=== PATIENT | female | born 1955 | race Caucasian/White ===

== ENCOUNTER 2017-06-24 11:09 | Inpatient (IN) ==
[2017-06-24] MEDS ORDERED: Famotidine 20 MG/2 ML VIAL IVP ONE (11:40)
[2017-06-24] MEDS ORDERED: Pregabalin 75 MG CAPSULE PO ONE (11:40)
[2017-06-24] MEDS ORDERED: Clindamycin 900 MG/50 ML 900 MG/50 ML IV.SOLN IVPB ONE (12:05)
[2017-06-24] MEDS ORDERED: Ringers Solution, Lactated 1,000 ML IVC SCH ×2 (12:15→16:16)
--- NOTE | 2017-06-24 12:19 | Anesthesia Evaluation PreOp ---
Date of Encounter: 06/24/17 Time of Encounter: 12:15 - Past History Planned Operation: Rt Total Shoulder Replacement Cardiac History: Denies any Significant Hx Pulmonary History: Denies Any Significant HX TAMPER OPERATOR History: Denies Any Significant HX Other Medical History: Thyroid, GERD, Other (Arthritis, Obese) Anesthesia History: No Prior Anesthetic Complications : No Test: Negative Alcohol Use: none Drug use: none Medications and Allergies Atenolol [Tenormin] 25 mg PO HS 06/24/17 [History] Citalopram Hydrobromide [Celexa] 40 mg PO DAILY 06/24/17 [History] Cyclosporine [Restasis] 1 drop BOTH EYES BID 06/24/17 [History] Docusate [Colace] 100 mg PO DAILY PRN 06/24/17 [History] Ergocalciferol (VITAMIN D2) [Vitamin D2] 50,000 unit PO TH 06/24/17 [History] Flaxseed Oil [[place]-3 Flaxseed Oil] 1,000 mg PO DAILY 06/24/17 [History] Flaxseed/Evening Prim/Bilberry [Retaine Flax Softgel] 1 cap PO DAILY 06/24/17 [ History] Furosemide [Lasix] 40 mg PO DAILY 06/24/17 [History] Gabapentin [Neurontin] 600 mg PO TID 06/24/17 [History] Levothyroxine [Synthroid] 88 mcg PO 0630 06/24/17 [History] Meloxicam [Mobic] 15 mg PO DAILY 06/24/17 [History] Morphine Sulfate [Noemi] 30 mg PO TID 06/24/17 [History] Nitroglycerin [Nitrostat] 0.4 mg SL AD PRN 06/24/17 [History] Nortriptyline [Pamelor] 25 mg PO BID 06/24/17 [History] Potassium Bicarbonate/Cit AC [Effer-K 10 Meq Tablet Eff] 10 meq PO BID 06/24/17 [History] Promethazine [Phenergan] 25 mg PO Q8HR PRN 06/24/17 [History] Rabeprazole Sodium [Aciphex] 20 mg PO BID 06/24/17 [History] Spironolactone [Aldactone] 25 mg PO DAILY 06/24/17 [History] 3 Allergy/AdvReac Type Severity Reaction Status Date / Time Amoxicillin Allergy See Verified 06/24/17 12:06 Comments aspirin Allergy See Verified 06/24/17 12:06 Comments codeine Allergy See Verified 06/24/17 12:06 Comments Cyclobenzaprine Allergy See Verified 06/24/17 12:06 [From Flexeril] Comments NSAIDS (Non-Steroidal Allergy See Verified 06/24/17 12:06 Anti-Inflamma Comments Penicillins [PCN] Allergy See Verified 06/24/17 12:06 Comments pentazocine [From Talwin] Allergy Difficulty Verified 06/24/17 12:06 Breathing acetaminophen [From Tylenol] AdvReac See Verified 06/24/17 12:06 Comments eggs AdvReac See Uncoded 06/24/17 12:06 Comments - Meds/Allergy Pre-op Review Medications Reviewed: Yes Allergies Reviewed: Yes Beta Blockers on Current Med List: Yes (Atenolol midnight) Anesthesia Results - Labs HGB 14.0 HCT 41.6 PLt 219 Na 142 Creat 1.46 - Imaging EKG: report reviewed (SR) Anesthesia Exam O2 Sat Height 19.51 m Height 19.51 m Weight 100.698 kg Weight 100.698 kg O2 Sat by Pulse Oximetry 96 Vital Signs Temp Pulse Resp BP Pulse Ox 97.6 F 79 18 136/75 96 06/24/17 11:31 06/24/17 11:31 06/24/17 11:31 06/24/17 11:31 06/24/17 11:31 Height: 5'4 Weight: 222 lbs NPO (# of Hours): MN Pain Scale: 0 - HEENT Pupil (Motor): Pupils equal, EOMI Mallampati: III Oral Opening: Less than or equal to 3 - TAMPER OPERATOR LOC: Oriented TAMPER OPERATOR Motor: Normal RUE, Normal LUE, Normal RLE, Normal LLE, Normal Face TAMPER OPERATOR Sensory: Normal: RUE, LUE, RLE, LLE, Face - Cardiac Rhythm: Regular Murmur: None JVD: No Carotid Bruit: No - Pulmonary Breath Sounds: bilateral Clear Respiratory Effort: Symmetrical Anesthesia Assess/Plan ASA Score: 2 Modified [place] Scale for Level of Consciousness: Cooperative, oriented, and tranquil Anesthetic Plan: General, Regional Monitoring Plan: Standard Monitors Recovery Plan: PACU (Discussed GA and RA, agrees to proceed)
--- NOTE | 2017-06-24 12:29 | History & Physical Report ---
Date of Encounter: 06/24/17 Time of Encounter: 12:28 24 Hour HP Update - Instructions Instructions: If the History and Physical is less than 30 days old and was completed prior to A.M. admission and or procedure and has NOT been updated on calendar day of procedure please complete this update prior to performing procedure. - Update Patient reports changes in Medical Condition: No Changes in examination, assessment, or condition: No Changes in Medication: No Preop tests/diagnostics Reviewed: Yes Surgery Remains Indicated: Yes Consent for Planned Operative Procedure(s) Verified: Yes - Pre-Operative Checklist Preoperative Checklist Indicated: No Prophylactic Antibiotic Ordered: Yes Is VTE Prophylaxis Indicated?: Yes
--- NOTE | 2017-06-24 12:47 | Discharge Summary ---
Orders not resulted at time of discharge: Pending orders 06/24/17 US anesthesia pain block [US] Routine 06/24/17 08:33 XR shoulder complete RT [XR] Routine Hemoglobin and Hematocrit [HEME] Routine Date of Encounter: 06/30/17 Time of Encounter: 13:45 - Discharge Diagnosis (1) Rotator cuff tear arthropathy of right shoulder Priority: Primary Status: Chronic (2) Status post reverse total replacement of right shoulder Priority: Primary Status: Acute (3) Hypothyroidism Priority: Secondary Status: Chronic Qualifiers: Hypothyroidism type: unspecified Qualified Code(s): E03.9 - Hypothyroidism , unspecified - Hospital Course Hospital course: Ms. Flores is a 62 year old female Status post total shoulder replacement The patient had an uneventful postoperative course. They received antibiotics and physical therapy and were discharged in stable condition. There will follow -up in the office in 2 weeks. - Time Spent with Patient Total time spent providing and/or coordinating discharge services: - Discharge Medications Home Medications: Atenolol [Tenormin] 25 mg PO HS 06/24/17 [History] Citalopram Hydrobromide [Celexa] 40 mg PO DAILY 06/24/17 [History] Cyclosporine [Restasis] 1 drop BOTH EYES BID 06/24/17 [History] Docusate [Colace] 100 mg PO DAILY PRN 06/24/17 [History] Ergocalciferol (VITAMIN D2) [Vitamin D2] 50,000 unit PO TH 06/24/17 [History] Flaxseed Oil [Premium-3 Flaxseed Oil] 1,000 mg PO DAILY 06/24/17 [History] Flaxseed/Evening Prim/Bilberry [Retaine Flax Softgel] 1 cap PO DAILY 06/24/17 [ History] Furosemide [Lasix] 40 mg PO BID 06/24/17 [History] Gabapentin [Neurontin] 600 mg PO TID 06/24/17 [History] Levothyroxine [Synthroid] 88 mcg PO 0630 06/24/17 [History] Lidocaine Patch [Lidoderm 5% patch] 1 patch TD DAILY 06/24/17 [History] Meloxicam [Mobic] 15 mg PO DAILY 06/24/17 [History] Morphine Sulfate [Noemi] 30 mg PO TID 06/24/17 [History] Nitroglycerin [Nitrostat] 0.4 mg SL AD PRN 06/24/17 [History] Nortriptyline [Pamelor] 25 mg PO BID 06/24/17 [History] Potassium Bicarbonate/Cit AC [Effer-K 10 Meq Tablet Eff] 10 meq PO BID 06/24/17 [History] Promethazine [Phenergan] 25 mg PO Q8HR PRN 06/24/17 [History] Rabeprazole Sodium [Aciphex] 20 mg PO BID 06/24/17 [History] Spironolactone [Aldactone] 25 mg PO DAILY 06/24/17 [History] Allergies/Adverse Reactions: 3 Allergy/AdvReac Type Severity Reaction Status Date / Time Amoxicillin Allergy See Verified 06/24/17 12:06 Comments aspirin Allergy See Verified 06/24/17 12:06 Comments codeine Allergy See Verified 06/24/17 12:06 Comments Cyclobenzaprine Allergy See Verified 06/24/17 12:06 [From Flexeril] Comments NSAIDS (Non-Steroidal Allergy See Verified 06/24/17 12:06 Anti-Inflamma Comments Penicillins [PCN] Allergy See Verified 06/24/17 12:06 Comments pentazocine [From Talwin] Allergy Difficulty Verified 06/24/17 12:06 Breathing acetaminophen [From Tylenol] AdvReac See Verified 06/24/17 12:06 Comments eggs AdvReac See Uncoded 06/24/17 12:06 Comments Primary care physician: Amanda Beltre - Patient Status Disposition: Home Health Service Condition: Good Functional capacity at discharge: independent ambulation Overall status at discharge: patient is progressing back to baseline - Discharge Instructions Follow Up With: Jimmie Winters MD [Partnered Physician] - 07/19/17 3:45 pm ([facility] ) Hal Musa MD [Partnered Physician] - 07/06/17 9:20 am ([facility] ) Additional Instructions: Discharge Instructions: Total Shoulder Please call [facility] ([phone]), your Primary Care Physician, or report to the Emergency Room if you have any of the following symptoms: Nausea, vomiting, fever greater that 101.5, swelling, chest pain, shortness of breath, increased pain/redness/drainage/odor for your incision site, numbness/ tingling, or any other concerning symptoms. ACTIVITY: Always keep your arm in the sling. Do not raise your arm away from your body. Do not use your arm to help with getting in or out of bed. No weight bearing permitted. Only perform those exercises given to you by your therapist. MEDICATIONS: Upon discharge resume your home medications. Take all the medications as prescribed. Take a stool softener if taking narcotic pain medications. Stool softeners are only effective if you drink enough fluids. Drink 6-8 glass of water or fluids a day, unless this is not allowed for another health problem. Despite using stool softeners, if you haven't had a bowel movement in 3 days, please switch to a gentle laxative. Gentle laxatives are sold over the counter. You should have a bowel movement within 24 hours, if not call the office. You will be discharged from the hospital with a prescription for pain medication. You are encouraged to decrease the use of narcotic pain medication as tolerated. Should you require a refill, please call the office. [facility] prescribes narcotic pain medication for only 4-6 weeks after surgery. If you require pain medication beyond this time period, you may be referred to your Primary Care Physician or to the Pain Clinic for further evaluation. Plan ahead for refills on pain medication as many narcotics either need to be picked up at the office or mailed. It is best to call 48-72 hours in advance of needing a prescription refill so you don't run out of medication. To help control the post-operative pain, you may take NSAIDs (Aleve,Advil, Motrin, Ibuprofen, Naprosyn) or Tylenol as prescribed on the bottle in addition to the pain medication. WOUND CARE: Leave the dressing on for 7-10 days. You may change the dressing if it becomes saturated greater than 50%. Do not get the dressing wet at anytime. Wash your hands with antibacterial soap, rinse and dry prior to any wound care. If you have kelly the visiting nurse or rehab facility can remove the stapes 10-14 days after surgery and place steri-strips across the wound. Leave the steri-strips in place until they fall off on their own. You may let water from the shower run on top of the steri-strips. If you do not have a visiting nurse or rehab facility, you will need to return to the office at 10-14 days for the kelly to be removed. If you have itching or redness around the dressing call the office. FOLLOW-UP: Please follow up with your surgeon in the orthopedic clinic, as scheduled
[2017-06-24] MEDS ORDERED: Dexamethasone 4 MG/ML VIAL ONE (13:00)
[2017-06-24] MEDS ORDERED: *HR* Midazolam HCl 2 MG/2 ML VIAL ONE (13:00)
[2017-06-24] MEDS ORDERED: *HR* Succinylcholine 200 MG/10 ML VIAL IVP ONE (13:00)
[2017-06-24] MEDS ORDERED: Lidocaine -MPF 2% 2 ML VIAL ONE (13:00)
[2017-06-24] MEDS ORDERED: Ondansetron 4 MG/2 ML VIAL ONE (13:00)
[2017-06-24] MEDS ORDERED: Lidocaine -MPF 4% 5 ML AMPUL ONE (13:00)
[2017-06-24] MEDS ORDERED: *HR* FentaNYL (PF) 100 MCG/2 ML VIAL ONE (13:00)
[2017-06-24] MEDS ORDERED: *HR* Propofol 200 MG/20 ML VIAL IVP ONE (13:01)
[2017-06-24] MEDS ORDERED: ROPIVACAINE HCL/PF 0.5% 30 ML VIAL ONE (13:04)
[2017-06-24] MEDS ORDERED: Tetracaine/PF 20 MG/2 ML AMPUL ONE (13:04)
--- NOTE | 2017-06-24 13:19 | Anesthesia Procedures ---
Date of Encounter: 06/24/17 Time of Encounter: 12:15 Procedures: Anesthesia - Nerve Block Procedure Date: 06/24/17 Time: 13:20 Pre-op Diagnosis: Rt Shoulder Arthropathy Surgical Procedure: Rt Total Shoulder Checklist: Correct Patient Identifier Correct side: Right Blood Thinner: No Monitor Applied: EKG, BP, Pulse Oximetry Supplemental Oxygen via Nasal Cannula (L/min): 2 Sedation: Versed (mg): 1 Sedation: Fentanyl (mcg): 50 Indication: Post Op Analgesia Pre-op Neuro Deficits: No Block Type: Supraclavicular Catheter placed: No Depth at skin (cm): 2 Sterile Technique: Yes Ultrasound used: Yes Anatomy identified: Yes Visual spread of Local: Yes Neuro Stimulation: No Blood on Needle Aspiration: No Smooth Injection of Local: Yes Pain with Injection of Local: No Prep: Chlorhexadine Needle: 22 x 50 mm Stimuplex Local: Tetracaine (20 mg), Ropivacaine (0.5%) Volume (cc): 30cc Number of Attempts: 1 Complications: None/effective block Vitals: O2 Sat Height 1.63 m Height 1.63 m Height 19.51 m Weight 100.698 kg Weight 100.698 kg Weight 100.698 kg O2 Sat by Pulse Oximetry 95 O2 Sat by Pulse Oximetry 96 Vital Signs Temp Pulse Resp BP Pulse Ox 97.6 F 79 18 136/75 96 06/24/17 11:31 06/24/17 11:31 06/24/17 11:31 06/24/17 11:31 06/24/17 11:31
[2017-06-24] MEDS ORDERED: *HR* HYDROmorphone (PF) 1 MG/ML SYRINGE IVP PRN (13:20)
[2017-06-24] MEDS ORDERED: *HR* Promethazine 25 MG/ML VIAL IVP PRN (13:20)
[2017-06-24] MEDS ORDERED: *HR* PHENYLEPHRINE 1,000 MCG/10 ML SYRINGE IVP ONE (14:20)
--- NOTE | 2017-06-24 15:23 | Orthopedic Operative Note ---
Date of procedure: 06/24/17 Pre-op diagnosis: right shoulder cuff tear arthropathy Post-op diagnosis: same Procedure: Procedure: Total Shoulder Replacment Reverse, Right Estimated blood loss: 100 cc Hardware: Metal and polyethylene replacement: Arthrex medium glenoid baseplate , 2 4.5 screws. 1 6.5 screw, 39+4 glenosphere, 6 humeral stem, poly insert 3 Exam Under anesthesia: Full motion no instability Procedural Notes: Irreparable tear supraspinatus tendon Operative procedure: The patient was brought to the operating room and placed on the operating room table. After general anesthesia was administered the operative shoulder was examined. Findings were noted. The patient was placed in the modified beachchair position. All pressure points were padded appropriately. And the head was stabilized in the neutral position. The operative extremity was prepped and draped in the sterile surgical fashion. The patient received IV antibiotics prior to skin incision. A standard deltopectoral approach was made to the operative shoulder. Incision was made to the skin and subcutaneous tissue,hemo stasis was obtained with Bovie cautery. Using careful blunt dissection the cephalic vein was identified and mobilized medially. The deltopectoral interval was developed and the clavipectoral fascia was incised. The subscap was released off the lesser tuberosity and tagged with #2 FiberWire suture subscap was irreparable. The humerus was dislocated patient noted to have irreparable tear supraspinatus tendon, and the humeral cut was made along the anatomic neck. Anterior and posterior Bankart retractors were placed to expose the glenoid. The glenoid guide was seated and the centering hole was made. It was reamed with the appropriate reamer. The small baseplate was seated and secured with (2) 4.5 screws and one 6.5 screw. The baseplate was irrigated and dried and the 39+4 Glenosphere was seated and secured with the Shaikh taper. The Shaikh taper was tested and found to be secure the humerus was redislocated and prepared with the diaphyseal reamers, followed by a broaching process up to the appropriate size 6 in the patient's anatomic version. The metaphyseal reamer was then utilized. Trial reduction found the shoulder to be relocatable. Trial components were removed and The appropriate 6 stem was impacted in place in the patient's anatomic version. Trial reduction found the shoulder to be relocatable and stable with the appropriate 3. Trial component was removed and the real implant was seated and secured the shoulder was reduced. The shoulder had excellent motion and excellent stability and no evidence of dislocation. The deep tissue was irrigated with pulse irrigation. The deltopectoral interval was closed with a running #1 PDS suture, subcutaneous tissue was irrigated and closed with 0 PDS suture, the skin was closed with Dermabond. The patient was placed in a sterile dressing, abduction brace and extubated. The patient was then transferred to the recovery room in stable condition. Anesthesia: PARVEZ Surgeon: Jimmie Winters Was there an apartment community assistant manager present: No Estimated blood loss (cc): 100 Condition: stable Disposition: PACU
--- NOTE | 2017-06-24 15:49 | Physician Discharge Referral ---
Home Health/Hosp Referral Info Transfer to: Home Health Attending Provider: Dr Winters - Diagnosis (1) Rotator cuff tear arthropathy of right shoulder Priority: Primary Status: Chronic (2) Status post reverse total replacement of right shoulder Priority: Primary Status: Acute (3) Hypothyroidism Priority: Secondary Status: Chronic - Respiratory Orders Smoking Cessation: Smoking cessation has been advised. For more information, call the [place] Tobacco Quit Line at 4-199-EKQT-NOW. - Dressing/Wound Care Site: right shoulder Type of Dressing/Treatments w/Frequency: Opsite placed. Keep dressing intact until first follow up appointment. If > 50% saturated, notify office, remove dressing and place appropriate dressing back in place. Leave Zipline intact. Opsite dressing is water resistant, not water- proof. OK to shower, but do not get dressing wet. - Diet/Nutrition Diet/Nutrition Orders: Regular - Activity Activity Orders: Up ad jered, Ambulate, Chair Activity: List: PT/OT. NWB to affected upper extremity. Follow Shoulder Precautions x 6 weeks. Stay in brace during activity and at night. Remove brace during exercises. ICE and elevate extremity frequently throughout the day. - Services Needed Following services are medically necessary services: Nursing, Home Health Aide, Physical Therapy, Occupational Therapy - Transfer Medications Home Medications: Atenolol [Tenormin] 25 mg PO HS 06/24/17 [History] Citalopram Hydrobromide [Celexa] 40 mg PO DAILY 06/24/17 [History] Cyclosporine [Restasis] 1 drop BOTH EYES BID 06/24/17 [History] Docusate [Colace] 100 mg PO DAILY PRN 06/24/17 [History] Ergocalciferol (VITAMIN D2) [Vitamin D2] 50,000 unit PO TH 06/24/17 [History] Flaxseed Oil [[place]-3 Flaxseed Oil] 1,000 mg PO DAILY 06/24/17 [History] Flaxseed/Evening Prim/Bilberry [Retaine Flax Softgel] 1 cap PO DAILY 06/24/17 [ History] Furosemide [Lasix] 40 mg PO BID 06/24/17 [History] Gabapentin [Neurontin] 600 mg PO TID 06/24/17 [History] Levothyroxine [Synthroid] 88 mcg PO 0630 06/24/17 [History] Lidocaine Patch [Lidoderm 5% patch] 1 patch TD DAILY 06/24/17 [History] Meloxicam [Mobic] 15 mg PO DAILY 06/24/17 [History] Morphine Sulfate [Noemi] 30 mg PO TID 06/24/17 [History] Nitroglycerin [Nitrostat] 0.4 mg SL AD PRN 06/24/17 [History] Nortriptyline [Pamelor] 25 mg PO BID 06/24/17 [History] Potassium Bicarbonate/Cit AC [Effer-K 10 Meq Tablet Eff] 10 meq PO BID 06/24/17 [History] Promethazine [Phenergan] 25 mg PO Q8HR PRN 06/24/17 [History] Rabeprazole Sodium [Aciphex] 20 mg PO BID 06/24/17 [History] Spironolactone [Aldactone] 25 mg PO DAILY 06/24/17 [History] Allergies/Adverse Reactions: 3 Allergy/AdvReac Type Severity Reaction Status Date / Time Amoxicillin Allergy See Verified 06/24/17 12:06 Comments aspirin Allergy See Verified 06/24/17 12:06 Comments codeine Allergy See Verified 06/24/17 12:06 Comments Cyclobenzaprine Allergy See Verified 06/24/17 12:06 [From Flexeril] Comments NSAIDS (Non-Steroidal Allergy See Verified 06/24/17 12:06 Anti-Inflamma Comments Penicillins [PCN] Allergy See Verified 06/24/17 12:06 Comments pentazocine [From Talwin] Allergy Difficulty Verified 06/24/17 12:06 Breathing acetaminophen [From Tylenol] AdvReac See Verified 06/24/17 12:06 Comments eggs AdvReac See Uncoded 06/24/17 12:06 Comments Certification: Further, I certify that my clinical findings support that this patient is homebound (i.e. absences from home require considerable and taxing effort and are for medical reasons or zoroastrianism services or infrequently or short duration when for other reasons) because: Homebound Reason: Post-surgery restriction and or conditions limit ability to leave home Attestation: My signature below is to certify that this patient is under my care and that I, or nurse practitioner, or a physician anesthesiologist assistant certified working with me, has a face-to- face encounter with this patient.
--- NOTE | 2017-06-24 15:51 | Physician Discharge Referral ---
ExtendedCare Referral Info Transfer To: [facility] Provider in Charge: Dr Winters - Diagnosis (1) Rotator cuff tear arthropathy of right shoulder Priority: Primary Status: Chronic (2) Status post reverse total replacement of right shoulder Priority: Primary Status: Acute (3) Hypothyroidism Priority: Secondary Status: Chronic Expected Duration of Placement: less than 30 days Prognosis: Good Aware of Diagnosis: Patient Aware of Prognosis: Patient - Transfer Medications Home Medications: Atenolol [Tenormin] 25 mg PO HS 06/24/17 [History] Citalopram Hydrobromide [Celexa] 40 mg PO DAILY 06/24/17 [History] Cyclosporine [Restasis] 1 drop BOTH EYES BID 06/24/17 [History] Docusate [Colace] 100 mg PO DAILY PRN 06/24/17 [History] Ergocalciferol (VITAMIN D2) [Vitamin D2] 50,000 unit PO TH 06/24/17 [History] Flaxseed Oil [[place]-3 Flaxseed Oil] 1,000 mg PO DAILY 06/24/17 [History] Flaxseed/Evening Prim/Bilberry [Retaine Flax Softgel] 1 cap PO DAILY 06/24/17 [ History] Furosemide [Lasix] 40 mg PO BID 06/24/17 [History] Gabapentin [Neurontin] 600 mg PO TID 06/24/17 [History] Levothyroxine [Synthroid] 88 mcg PO 0630 06/24/17 [History] Lidocaine Patch [Lidoderm 5% patch] 1 patch TD DAILY 06/24/17 [History] Meloxicam [Mobic] 15 mg PO DAILY 06/24/17 [History] Morphine Sulfate [Noemi] 30 mg PO TID 06/24/17 [History] Nitroglycerin [Nitrostat] 0.4 mg SL AD PRN 06/24/17 [History] Nortriptyline [Pamelor] 25 mg PO BID 06/24/17 [History] Potassium Bicarbonate/Cit AC [Effer-K 10 Meq Tablet Eff] 10 meq PO BID 06/24/17 [History] Promethazine [Phenergan] 25 mg PO Q8HR PRN 06/24/17 [History] Rabeprazole Sodium [Aciphex] 20 mg PO BID 06/24/17 [History] Spironolactone [Aldactone] 25 mg PO DAILY 06/24/17 [History] Allergies/Adverse Reactions: 3 Allergy/AdvReac Type Severity Reaction Status Date / Time Amoxicillin Allergy See Verified 06/24/17 12:06 Comments aspirin Allergy See Verified 06/24/17 12:06 Comments codeine Allergy See Verified 06/24/17 12:06 Comments Cyclobenzaprine Allergy See Verified 06/24/17 12:06 [From Flexeril] Comments NSAIDS (Non-Steroidal Allergy See Verified 06/24/17 12:06 Anti-Inflamma Comments Penicillins [PCN] Allergy See Verified 06/24/17 12:06 Comments pentazocine [From Talwin] Allergy Difficulty Verified 06/24/17 12:06 Breathing acetaminophen [From Tylenol] AdvReac See Verified 06/24/17 12:06 Comments eggs AdvReac See Uncoded 06/24/17 12:06 Comments - Respiratory Orders Smoking Cessation: Smoking cessation has been advised. For more information, call the [employer] Tobacco Quit Line at 1-797-KAPI-NOW. - Ancillary Orders May use pressure relief devices daily prn, May go on AIMEE w/family/respon libertarian w /meds at nurse discretion PRN, May consult with Dentist, Skin Fitter, Grain Trimmer PRN - Mobility Orders Chair, Ambulate - Rehabiliation Orders Rehab Potential: Good Rehab Orders: Evaluation for Physical Therapy, Evaluation for Occupational Therapy Other: PT/OT. NWB to affected upper extremity. Follow Shoulder Precautions x 6 weeks. Stay in brace during activity and at night. Remove brace during exercises. ICE and elevate extremity frequently throughout the day. - Treatments Skin tear care topically daily PRN per policy List/Other: Opsite placed. Keep dressing intact until first follow up appointment. If > 50% saturated, notify office, remove dressing and place appropriate dressing back in place. Leave Zipline intact. Opsite dressing is water resistant, not water- proof. OK to shower, but do not get dressing wet. - Diet Orders Regular CERTIFICATION: I certify that the transfer of the above named patient to an Extended Care Facility is necessary for the continuing treatment of the diagnosis listed. The above information is true and accurate reflection of patient's current condition. Confidential - Redisclosure prohibited without a patient's written consent.
[2017-06-24] MEDS ORDERED: Ondansetron 4 MG/2 ML VIAL IVP PRN (16:16)
[2017-06-24] MEDS ORDERED: Nitroglycerin 0.4 MG TAB.SUBL SL PRN (16:16)
[2017-06-24] MEDS ORDERED: Sennosides 8.6 MG TABLET PO PRN (16:16)
[2017-06-24] MEDS ORDERED: Temazepam 15 MG CAPSULE PO PRN (16:16)
[2017-06-24] MEDS ORDERED: MOM Conc 10 ML UD.LIQ PO PRN (16:16)
[2017-06-24] MEDS ORDERED: Naloxone 0.4 MG/ML INJ IVP PRN (16:16)
[2017-06-24 16:22] LABS: Hematocrit 40.8 % (35.3-44.9); Hemoglobin 13.3 g/dL (11.5-15.4)
[2017-06-24] MEDS ORDERED: *HR* Enoxaparin 30 MG/0.3 ML SYRINGE SQ SCH (18:00)
[2017-06-24] MEDS: *HR* OxyCODONE Immed Rel 5 MG TABLET PO PRN (18:45)
[2017-06-24] MEDS: Clindamycin 900 MG/50 ML 900 MG/50 ML IV.SOLN IVPB SCH (18:46)
[2017-06-24] MEDS: *HR* Morphine Sulfate SR (12 HR) 30 MG TABLET.ER PO SCH (18:46)
[2017-06-24] MEDS: *HR* Enoxaparin 30 MG/0.3 ML SYRINGE SQ SCH (19:08)
--- NOTE | 2017-06-24 19:17 | Electrocardiograph Report ---
[facility] Test Date: 2017-06-24 Pat Name: Tomeka Flores Department: 101 Room: [facility] Gender: F Employment Adjudicator: CHRIS : 1955 Requested By: Vernon Baldwin Order Number: [id number] Reading MD: Marcos Ansari MD Measurements Intervals [place] Rate: 0 P: SD: 0 QRS: 0 QRSD: 0 T: 0 QT: 0 QTc: 0 Interpretive Statements NO FURTHER INTERPRETATION POSSIBLE ATYPICAL ECG Electronically Signed On 06-24-2017 19:15:14 EDT by Marcos Ansari MD
[2017-06-24] MEDS: (Cyclosporine [Restasis] 1 DROP) OP SCH (21:03)
[2017-06-24] MEDS: Gabapentin 300 MG CAPSULE PO SCH (21:03)
[2017-06-24] MEDS: Potassium Effervescent 25 MEQ TABLET.EFF PO SCH (22:34)
[2017-06-25] MEDS: Clindamycin 900 MG/50 ML 900 MG/50 ML IV.SOLN IVPB SCH (01:43)
[2017-06-25] MEDS: *HR* OxyCODONE Immed Rel 5 MG TABLET PO PRN ×2 (01:44→21:59)
[2017-06-25] MEDS: *HR* Enoxaparin 30 MG/0.3 ML SYRINGE SQ SCH ×2 (06:09→18:19)
[2017-06-25 07:31] LABS: Hematocrit 38.7 % (35.3-44.9); Hemoglobin 12.7 g/dL (11.5-15.4)
[2017-06-25] MEDS: Furosemide 40 MG TABLET PO SCH (09:27)
[2017-06-25] MEDS: Gabapentin 300 MG CAPSULE PO SCH ×3 (09:27→20:40)
[2017-06-25] MEDS: *HR* Morphine Sulfate SR (12 HR) 30 MG TABLET.ER PO SCH ×3 (09:28→20:40)
[2017-06-25] MEDS: Spironolactone 25 MG TABLET PO SCH (09:29)
[2017-06-25] MEDS: Potassium Effervescent 25 MEQ TABLET.EFF PO SCH ×2 (09:32→20:40)
[2017-06-25] MEDS: (Cyclosporine [Restasis] 1 DROP) OP SCH ×2 (09:33→20:43)
--- NOTE | 2017-06-25 11:10 | Orthopedics Progress Note ---
Date of Encounter: 06/25/17 Time of Encounter: 11:08 Subjective Principal diagnosis: Status post right total shoulder reverse replacement Interval history: The patient is without complaints. Afebrile vital signs are stable. Incision is clean dry and intact. Blocks still working and so unable to move digits in the upper extremity. Brisk capillary refill. Assessment stable. Plan will not discharge until block wears off. Follow-up per Dr. Winters protocol. Objective Vital signs: Vital Signs Temp Pulse Resp BP Pulse Ox 06/25/17 07:12 97.5 F L 62 18 110/68 97 06/25/17 05:01 97.8 F 60 12 119/68 97 06/25/17 01:00 97.7 F 64 12 135/80 94 06/24/17 19:22 97.9 F 80 16 102/65 98 06/24/17 17:40 97.5 F L 69 15 112/64 98 06/24/17 17:10 97.6 F 71 16 104/60 97 06/24/17 16:36 97.5 F L 72 118/73 90 06/24/17 16:25 97.5 F L 70 16 118/73 98 06/24/17 16:14 97.2 F L 71 14 118/70 97 06/24/17 16:04 71 16 121/74 96 06/24/17 15:54 69 16 113/75 97 06/24/17 15:44 97.0 F L 70 14 120/74 99 06/24/17 15:34 68 14 104/66 99 06/24/17 15:24 70 12 108/73 99 06/24/17 15:14 97.2 F L 66 12 106/69 95 06/24/17 13:50 71 16 97/55 98 06/24/17 13:35 69 16 101/60 96 06/24/17 13:20 69 16 110/61 95 06/24/17 13:05 70 18 113/70 95 06/24/17 11:31 97.6 F 79 18 136/75 96 Intake and Output 06/24/17 06/25/17 06/25/17 23:59 07:59 15:59 Intake Total 50 / 50 Balance 50 / 50 Intake: IV Fluids 50 / 50 Cleocin Premix 900 MG/50 ML 900 50 / 50 mg In 50 ml @ 50 mls/hr IVPB Q8H [facility] Rx#:[id number] - Labs CBC & BMP: 06/25/17 06:26 - VTE Documentation of Mechanical Device: Venous foot pump, device Consult Discharge Plan - Plan Referrals: Amanda Beltre, TEXT[employer] ARTIST [Primary Care Provider] -
[2017-06-25] MEDS: *HR* OxyCODONE/APAP 5/325 TABLET PO PRN (18:29)
[2017-06-25] MEDS: traMADol 50 MG TABLET PO PRN (23:19)
[2017-06-26] MEDS: *HR* OxyCODONE Immed Rel 5 MG TABLET PO PRN ×3 (02:09→10:24)
[2017-06-26] MEDS: traMADol 50 MG TABLET PO PRN (05:14)
[2017-06-26] MEDS: *HR* Enoxaparin 30 MG/0.3 ML SYRINGE SQ SCH (05:15)
[2017-06-26 06:12] LABS: Hematocrit 36.7 % (35.3-44.9); Hemoglobin 11.8 g/dL (11.5-15.4)
[2017-06-26 07:06] VITALS: BP 104/58
[2017-06-26] MEDS: Potassium Effervescent 25 MEQ TABLET.EFF PO SCH (07:45)
[2017-06-26] MEDS: Furosemide 40 MG TABLET PO SCH (07:46)
[2017-06-26] MEDS: *HR* Morphine Sulfate SR (12 HR) 30 MG TABLET.ER PO SCH (07:46)
[2017-06-26] MEDS: Spironolactone 25 MG TABLET PO SCH (07:46)
[2017-06-26] MEDS: (Cyclosporine [Restasis] 1 DROP) OP SCH (07:47)
[2017-06-26] MEDS: Gabapentin 300 MG CAPSULE PO SCH (07:47)
[2017-06-26] MEDS: *HR* OxyCODONE/APAP 5/325 TABLET PO PRN (12:56)
== END 2017-06-26 13:38 | disposition home health service (06) | DRG 483 ==
LOC: SAMDAY 11:09 → 3NENU 16:13
PROVIDERS: ADMIT Orthopaedic Surgery; ATTEND Orthopaedic Surgery